=== PATIENT | female | born 1970 | race Caucasian/White ===

== ENCOUNTER 2016-08-10 06:35 | Inpatient (IN) ==
[2016-08-10] MEDS ORDERED: IOPAMIDOL 100 ML BOTTLE IV ONE (06:36)
[2016-08-10] MEDS ORDERED: ONDANSETRON 4 MG/2 ML VIAL IV ONE ×2 (07:06→10:20)
[2016-08-10] MEDS ORDERED: 0.9 % SODIUM CHLORIDE 1,000 ML IV ONE (07:06)
[2016-08-10] MEDS: HYDROmorphone 2 MG/ML SYRINGE IV PRN ×8 (07:24→23:23)
--- NOTE | 2016-08-10 07:28 | Emergency Department Note ---
Abdominal Pain HPI - General Chief Complaint: Abdominal Pain Stated Complaint: epigastric abd pain x4 days Time Seen by Provider: 08/10/16 07:14 Source: patient Mode of arrival: ambulatory Limitations: no limitations - History of Present Illness HPI Narrative: 45-year-old female with a history of alcoholism drinking 8-10 drinks a day of beer and vodka. Is complaining of some midepigastric pain and has been having some nausea but did not vomit today. Vomited 2 days ago. The was no blood in vomitus. No black. Patient is afebrile take as the pain is sharp in the central midepigastric region. Has been seen for gastritis in the past. Has had elevated liver function tests - Related Data Home Medications Medication Instructions Recorded Confirmed cloNIDine HCL [Catapres] 0.1 mg PO BID 11/15/14 08/10/16 Escitalopram [Lexapro] 20 mg PO DAILY 12/30/14 08/10/16 Previous Rx's Medication Instructions Recorded Ranitidine HCl [Zantac] 150 mg PO BID #60 tab 05/07/15 Sucralfate [Carafate] 1 gm PO ACHS #120 tablet 05/07/15 Allergies Allergy/AdvReac Type Severity Reaction Status Date / Time Penicillins Allergy Rash Verified 05/07/15 15:31 Review of Systems All systems ED: reviewed and negative except as stated. Constitutional: Denies: fever Eyes: Denies: eye pain ENT ED: Denies: ear pain Cardiovascular: Denies: chest pain Respiratory: Denies: cough Gastrointestinal: Reports: abdominal pain, nausea, vomiting. Denies: diarrhea, constipation, hematemesis Genitourinary: Denies: urgency, dysuria, frequency Musculoskeletal: Denies: back pain Integumentary: Denies: rash Neurological: Denies: headache Psychiatric: Denies: anxiety Endocrine: Denies: fatigue Hematological/Lymphatic: Denies: easy bleeding Allergic/Immunologic: Denies: facial swelling Abdominal Pain PMH - Past Medical History Medical history: Reports: hypertension, other Surgical history ED: Reports: other (ovarian cyst) Psychiatric history: Reports: anxiety, depression NITROCELLULOSE MAKER history: Reports: no NITROCELLULOSE MAKER history Family history: Reports: other (Family history of alcoholism and coronary artery disease.) - Social History Smoking status: Never smoker Alcohol use: Reports: Heavy Drug use: Reports: none Physical Exam - General Limitations: no limitations General appearance: alert - Head Head exam: atraumatic, normocephalic - Expanded Head Exam Head exam physicial: Present: laceration - Eye Eye exam: Present: normal appearance, PERRL - ENT ENT exam: normal exam, normal oropharynx - Neck Neck exam: Present: normal inspection, full ROM - Chest Chest inspection: Present: normal inspection, symmetric chest wall rise - Respiratory Respiratory exam: Present: normal lung sounds bilaterally, respiratory distress - Cardiovascular Cardiovascular exam: Present: regular rate, normal rhythm - Abdominal Exam Abdominal exam: Present: soft, distention, tenderness, normal bowel sounds. Absent: guarding, rebound, rigidity Abdominal tenderness: Present: epigastrium - Rectal Exam Rectal exam: Present: normal inspection, normal rectal tone, heme (-) stool - Extremities Exam Extremities exam: Present: normal inspection, full ROM - Back Exam Back exam: Present: normal inspection, full ROM - Neurological Exam Neurological exam: Present: alert, oriented X3, CN II-XII intact - Psychiatric Psychiatric exam: Present: flat affect - Skin Skin exam: Present: warm Course Vital Signs Temperature 97.6 F 08/10/16 06:35 Pulse Rate 78 08/10/16 06:35 Respiratory Rate 18 08/10/16 06:35 Blood Pressure 171/152 08/10/16 06:35 Pulse Oximetry (%) 97 08/10/16 06:35 Temperature 97.6 F 08/10/16 06:35 Pulse Rate 66 08/10/16 08:30 Respiratory Rate 18 08/10/16 06:35 Blood Pressure 138/76 08/10/16 08:30 Pulse Oximetry (%) 95 08/10/16 08:30 Abdominal Pain - MDM Narrative Medical decision making narrative: CT of the abdomen with contrast and oral contrast ordered did lipase is markedly elevated. Patient has pancreatitis. atient has eroded care Dr. Beltran montiel at 0900 hrs. - Lab Data Result diagrams: 08/10/16 07:16 08/10/16 07:16 Lab Results 08/10/16 08/10/16 08/10/16 Range/Units 07:16 07:16 07:16 WBC 11.6 H (4.5-11.0) K/mcL RBC 3.50 L (4.00-5.20) M/mcL Hgb 12.7 (12.0-15.0) g/dL Hct 37.7 (36.0-48.0) % MCV 107.6 H (80.0-100.0) fL MCH 36.3 H (26.0-34.0) pg MCHC 33.7 (31.0-36.0) g/dL RDW 13.4 (11.5-14.5) % Plt Count 221 (140-440) K/mcL MPV 7.6 (7.4-10.4) fL Gran % 79.9 H (38.0-78.0) % Lymph % (Auto) 12.3 L (15.5-49.0) % [place] % (Auto) 5.5 (1.0-12.0) % Eos % (Auto) 2.0 (0.0-7.0) % Baso % (Auto) 0.3 (0.0-2.0) % Gran # 9.3 H (1.8-8.0) K/mcL Lymph # 1.4 L (1.5-4.8) K/mcL [place] # 0.6 (0.1-0.9) K/mcL Eos # 0.2 (0.0-0.7) K/mcL Baso # 0 (0.0-0.3) K/mcL PT (11.9-14.5) sec INR (0.9-1.1) Sodium 131 L (133-145) mmol/L Potassium 3.2 L (3.3-5.1) mmol/L Chloride 92 L (96-108) mmol/L Carbon Dioxide 26 (22-30) mmol/L Anion Gap 13.0 (8-16) BUN 12 (6-20) mg/dl Creatinine 0.8 (0.6-1.1) mg/dl GFR Calculation 90 Glucose 116 H (70-105) mg/dL Calcium 8.3 L (8.6-10.4) mg/dl Total Bilirubin 0.9 (0.0-1.0) mg/dL AST 19 (0-37) U/l ALT 20 (0-40) U/l Alkaline Phosphatase 83 (39-117) U/L Total Protein 6.2 (5.9-8.4) gm/dL Albumin 3.5 (3.2-5.2) gm/dL Globulin 2.7 (2.2-3.7) gm/dL Albumin/Globulin Ratio 1.3 (1.0-2.3) Amylase 361 H (28-100) U/L Lipase 1841 H (7-60) U/L Urine Color Yellow Urine Appearance Hazy Urine pH 7.0 (5.0-9.0) Ur Specific [place] 1.030 (1.000-1.035) Urine Protein 100 A (NEG) mg/dL Urine Glucose (UA) Negative (NEG) mg/dL Urine Ketones 20 A (NEG) mg/dL Urine Occult Blood 0.03 A (<0.03) mg/dL Urine Nitrate Neg (NEG) Urine Bilirubin Neg (NEG) mg/dL Urine Ictotest Neg (NEG) Urine Urobilinogen Neg (NEG) mg/dL Ur Leukocyte Esterase 25 A (NEG) /uL Urine RBC 23 H (0-1) /hpf Urine WBC 5 H (0-4) /hpf Ur Squamous Epith Cells 13 H (0-4) /hpf Urine Bacteria Few A (0) /hpf Urine Mucus Few (0) /hpf Ur Culture Indicated? No Urine Opiates Screen (NONDETECTED) Urine Methadone Screen (NONDETECTED) Ur Barbiturates Screen (NONDETECTED) Ur Phencyclidine Scrn (NONDETECTED) Ur Amphetamines Screen (NONDETECTED) U Benzodiazepines Scrn (NONDETECTED) Urine Cocaine Screen (NONDETECTED) U Marijuana (THC) Screen (NONDETECTED) Ethyl Alcohol (<0.010) gm/dl 08/10/16 08/10/16 08/10/16 Range/Units 07:16 07:16 07:16 WBC (4.5-11.0) K/mcL RBC (4.00-5.20) M/mcL Hgb (12.0-15.0) g/dL Hct (36.0-48.0) % MCV (80.0-100.0) fL MCH (26.0-34.0) pg MCHC (31.0-36.0) g/dL RDW (11.5-14.5) % Plt Count (140-440) K/mcL MPV (7.4-10.4) fL Gran % (38.0-78.0) % Lymph % (Auto) (15.5-49.0) % [place] % (Auto) (1.0-12.0) % Eos % (Auto) (0.0-7.0) % Baso % (Auto) (0.0-2.0) % Gran # (1.8-8.0) K/mcL Lymph # (1.5-4.8) K/mcL [place] # (0.1-0.9) K/mcL Eos # (0.0-0.7) K/mcL Baso # (0.0-0.3) K/mcL PT 12.8 (11.9-14.5) sec INR 0.9 (0.9-1.1) Sodium (133-145) mmol/L Potassium (3.3-5.1) mmol/L Chloride (96-108) mmol/L Carbon Dioxide (22-30) mmol/L Anion Gap (8-16) BUN (6-20) mg/dl Creatinine (0.6-1.1) mg/dl GFR Calculation Glucose (70-105) mg/dL Calcium (8.6-10.4) mg/dl Total Bilirubin (0.0-1.0) mg/dL AST (0-37) U/l ALT (0-40) U/l Alkaline Phosphatase (39-117) U/L Total Protein (5.9-8.4) gm/dL Albumin (3.2-5.2) gm/dL Globulin (2.2-3.7) gm/dL Albumin/Globulin Ratio (1.0-2.3) Amylase (28-100) U/L Lipase (7-60) U/L Urine Color Urine Appearance Urine pH (5.0-9.0) Ur Specific [place] (1.000-1.035) Urine Protein (NEG) mg/dL Urine Glucose (UA) (NEG) mg/dL Urine Ketones (NEG) mg/dL Urine Occult Blood (<0.03) mg/dL Urine Nitrate (NEG) Urine Bilirubin (NEG) mg/dL Urine Ictotest (NEG) Urine Urobilinogen (NEG) mg/dL Ur Leukocyte Esterase (NEG) /uL Urine RBC (0-1) /hpf Urine WBC (0-4) /hpf Ur Squamous Epith Cells (0-4) /hpf Urine Bacteria (0) /hpf Urine Mucus (0) /hpf Ur Culture Indicated? Urine Opiates Screen None detected (NONDETECTED) Urine Methadone Screen None detected (NONDETECTED) Ur Barbiturates Screen None detected (NONDETECTED) Ur Phencyclidine Scrn None detected (NONDETECTED) Ur Amphetamines Screen Suspect positive A (NONDETECTED) U Benzodiazepines Scrn None detected (NONDETECTED) Urine Cocaine Screen None detected (NONDETECTED) U Marijuana (THC) Screen None detected (NONDETECTED) Ethyl Alcohol < 0.010 (<0.010) gm/dl Disposition Condition: Fair Referrals: Kristin Russell ARNP [Primary Care Provider] -
[2016-08-10] MEDS ORDERED: POTASSIUM CHLORIDE 20 MEQ, MAGNESIUM SULFATE 16.24 MEQ, THIAMINE 100 MG, MVI, ADULT NO.... IV SCH (07:30)
[2016-08-10 07:59] LABS: Appearance,Urine HAZY; Bacteria,Urine FEW /hpf (0); Bilirubin,Urine NEG (NEG); Color,Urine YELLOW; Glucose,Urine (UA) NEGATIVE (NEG); Ictotest,Urine NEG (NEG); Leukocyte Esterase,Urine 25 /uL (NEG); Mucus,Urine FEW /hpf (0); Nitrate,Urine NEG (NEG); Protein,Urine 100 mg/dL (NEG); Urine Blood 0.03 mg/dL (<0.03); Urine RBC 23 /hpf (0-1); Urine Squamous Epithelial Cell 13 /hpf (0-4); Urine WBC 5 /hpf (0-4); Urobilinogen,Urine NEG (NEG)
[2016-08-10 08:01] LABS: Basophils # (Auto) 0 K/mcL (0.0-0.3); Basophils % (Auto) 0.3 % (0.0-2.0); Eosinophils # (Auto) 0.2 K/mcL (0.0-0.7); Granulocytes % (Auto) 79.9 % (38.0-78.0); Lymphocytes # (Auto) 1.4 K/mcL (1.5-4.8); Lymphocytes % (Auto) 12.3 % (15.5-49.0); Mean Cell Volume 107.6 fL (80.0-100.0); Mean Corpuscular HGB Conc 33.7 g/dL (31.0-36.0); Mean Corpuscular Hemoglobin 36.3 pg (26.0-34.0); Monocytes # (Auto) 0.6 K/mcL (0.1-0.9); Monocytes % (Auto) 5.5 % (1.0-12.0); Platelet Count 221 K/mcL (140-440); Red Cell Distribution Width 13.4 % (11.5-14.5)
[2016-08-10 08:14] LABS: ALT/SGPT 20 U/l (0-40); Albumin 3.5 gm/dL (3.2-5.2); Albumin/Globulin Ratio 1.3 (1.0-2.3); Alkaline Phosphatase 83 U/L (39-117); Amylase 361 U/L (28-100); Blood Urea Nitrogen 12 mg/dl (6-20)
[2016-08-10 08:21] LABS: Amphetamine Screen,Urine SUSPECT POSITIVE (NONDETECTED); Benzodiazepines Screen,Urine NONE DETECTED (NONDETECTED); Cocaine Screen,Urine NONE DETECTED (NONDETECTED); Opiate Screen,Urine NONE DETECTED (NONDETECTED)
[2016-08-10 08:22] LABS: Lipase 1841 U/L (7-60)
--- NOTE | 2016-08-10 10:26 | Emergency Department Note ---
Abdominal Pain HPI - General Chief Complaint: Abdominal Pain Stated Complaint: epigastric abd pain x4 days Time Seen by Provider: 08/10/16 07:14 Source: patient Mode of arrival: ambulatory Limitations: no limitations - Related Data Home Medications Medication Instructions Recorded Confirmed cloNIDine HCL [Catapres] 0.1 mg PO BID 11/15/14 08/10/16 Escitalopram [Lexapro] 20 mg PO DAILY 12/30/14 08/10/16 Previous Rx's Medication Instructions Recorded Ranitidine HCl [Zantac] 150 mg PO BID #60 tab 05/07/15 Sucralfate [Carafate] 1 gm PO ACHS #120 tablet 05/07/15 Allergies Allergy/AdvReac Type Severity Reaction Status Date / Time Penicillins Allergy Rash Verified 05/07/15 15:31 Review of Systems Constitutional: Denies: fever Eyes: Denies: eye pain ENT ED: Denies: ear pain Cardiovascular: Denies: chest pain Respiratory: Denies: cough Gastrointestinal: Reports: abdominal pain, nausea, vomiting. 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 BUSINESS INTELLIGENCE ENGINEER history Family history: Reports: other (Family history of alcoholism and coronary artery disease.) - Social History Alcohol use: Reports: Heavy Drug use: Reports: none Physical Exam - General Limitations: no limitations General appearance: alert Course Vital Signs Temperature 97.6 F 08/10/16 06:35 Pulse Rate 78 08/10/16 06:35 Respiratory Rate 18 08/10/16 06:35 Blood Pressure 171/152 08/10/16 06:35 Pulse Oximetry (%) 97 08/10/16 06:35 Temperature 97.6 F 08/10/16 06:35 Pulse Rate 65 08/10/16 09:30 Respiratory Rate 18 08/10/16 06:35 Blood Pressure 163/94 08/10/16 09:30 Pulse Oximetry (%) 97 08/10/16 09:30 Abdominal Pain - Lab Data Lab results reviewed: Yes I reviewed the patient's lab results. Result diagrams: 08/10/16 07:16 08/10/16 07:16 Lab Results 08/10/16 08/10/16 08/10/16 Range/Units 07:16 07:16 07:16 WBC 11.6 H (4.5-11.0) K/mcL RBC 3.50 L (4.00-5.20) M/mcL Hgb 12.7 (12.0-15.0) g/dL Hct 37.7 (36.0-48.0) % MCV 107.6 H (80.0-100.0) fL MCH 36.3 H (26.0-34.0) pg MCHC 33.7 (31.0-36.0) g/dL RDW 13.4 (11.5-14.5) % Plt Count 221 (140-440) K/mcL MPV 7.6 (7.4-10.4) fL Gran % 79.9 H (38.0-78.0) % Lymph % (Auto) 12.3 L (15.5-49.0) % [place] % (Auto) 5.5 (1.0-12.0) % Eos % (Auto) 2.0 (0.0-7.0) % Baso % (Auto) 0.3 (0.0-2.0) % Gran # 9.3 H (1.8-8.0) K/mcL Lymph # 1.4 L (1.5-4.8) K/mcL [place] # 0.6 (0.1-0.9) K/mcL Eos # 0.2 (0.0-0.7) K/mcL Baso # 0 (0.0-0.3) K/mcL PT (11.9-14.5) sec INR (0.9-1.1) Sodium 131 L (133-145) mmol/L Potassium 3.2 L (3.3-5.1) mmol/L Chloride 92 L (96-108) mmol/L Carbon Dioxide 26 (22-30) mmol/L Anion Gap 13.0 (8-16) BUN 12 (6-20) mg/dl Creatinine 0.8 (0.6-1.1) mg/dl GFR Calculation 90 Glucose 116 H (70-105) mg/dL Calcium 8.3 L (8.6-10.4) mg/dl Total Bilirubin 0.9 (0.0-1.0) mg/dL AST 19 (0-37) U/l ALT 20 (0-40) U/l Alkaline Phosphatase 83 (39-117) U/L Total Protein 6.2 (5.9-8.4) gm/dL Albumin 3.5 (3.2-5.2) gm/dL Globulin 2.7 (2.2-3.7) gm/dL Albumin/Globulin Ratio 1.3 (1.0-2.3) Amylase 361 H (28-100) U/L Lipase 1841 H (7-60) U/L Urine Color Yellow Urine Appearance Hazy Urine pH 7.0 (5.0-9.0) Ur Specific [place] 1.030 (1.000-1.035) Urine Protein 100 A (NEG) mg/dL Urine Glucose (UA) Negative (NEG) mg/dL Urine Ketones 20 A (NEG) mg/dL Urine Occult Blood 0.03 A (<0.03) mg/dL Urine Nitrate Neg (NEG) Urine Bilirubin Neg (NEG) mg/dL Urine Ictotest Neg (NEG) Urine Urobilinogen Neg (NEG) mg/dL Ur Leukocyte Esterase 25 A (NEG) /uL Urine RBC 23 H (0-1) /hpf Urine WBC 5 H (0-4) /hpf Ur Squamous Epith Cells 13 H (0-4) /hpf Urine Bacteria Few A (0) /hpf Urine Mucus Few (0) /hpf Ur Culture Indicated? No Urine Opiates Screen (NONDETECTED) Urine Methadone Screen (NONDETECTED) Ur Barbiturates Screen (NONDETECTED) Ur Phencyclidine Scrn (NONDETECTED) Ur Amphetamines Screen (NONDETECTED) U Benzodiazepines Scrn (NONDETECTED) Urine Cocaine Screen (NONDETECTED) U Marijuana (THC) Screen (NONDETECTED) Ethyl Alcohol (<0.010) gm/dl 08/10/16 08/10/16 08/10/16 Range/Units 07:16 07:16 07:16 WBC (4.5-11.0) K/mcL RBC (4.00-5.20) M/mcL Hgb (12.0-15.0) g/dL Hct (36.0-48.0) % MCV (80.0-100.0) fL MCH (26.0-34.0) pg MCHC (31.0-36.0) g/dL RDW (11.5-14.5) % Plt Count (140-440) K/mcL MPV (7.4-10.4) fL Gran % (38.0-78.0) % Lymph % (Auto) (15.5-49.0) % [place] % (Auto) (1.0-12.0) % Eos % (Auto) (0.0-7.0) % Baso % (Auto) (0.0-2.0) % Gran # (1.8-8.0) K/mcL Lymph # (1.5-4.8) K/mcL [place] # (0.1-0.9) K/mcL Eos # (0.0-0.7) K/mcL Baso # (0.0-0.3) K/mcL PT 12.8 (11.9-14.5) sec INR 0.9 (0.9-1.1) Sodium (133-145) mmol/L Potassium (3.3-5.1) mmol/L Chloride (96-108) mmol/L Carbon Dioxide (22-30) mmol/L Anion Gap (8-16) BUN (6-20) mg/dl Creatinine (0.6-1.1) mg/dl GFR Calculation Glucose (70-105) mg/dL Calcium (8.6-10.4) mg/dl Total Bilirubin (0.0-1.0) mg/dL AST (0-37) U/l ALT (0-40) U/l Alkaline Phosphatase (39-117) U/L Total Protein (5.9-8.4) gm/dL Albumin (3.2-5.2) gm/dL Globulin (2.2-3.7) gm/dL Albumin/Globulin Ratio (1.0-2.3) Amylase (28-100) U/L Lipase (7-60) U/L Urine Color Urine Appearance Urine pH (5.0-9.0) Ur Specific [place] (1.000-1.035) Urine Protein (NEG) mg/dL Urine Glucose (UA) (NEG) mg/dL Urine Ketones (NEG) mg/dL Urine Occult Blood (<0.03) mg/dL Urine Nitrate (NEG) Urine Bilirubin (NEG) mg/dL Urine Ictotest (NEG) Urine Urobilinogen (NEG) mg/dL Ur Leukocyte Esterase (NEG) /uL Urine RBC (0-1) /hpf Urine WBC (0-4) /hpf Ur Squamous Epith Cells (0-4) /hpf Urine Bacteria (0) /hpf Urine Mucus (0) /hpf Ur Culture Indicated? Urine Opiates Screen None detected (NONDETECTED) Urine Methadone Screen None detected (NONDETECTED) Ur Barbiturates Screen None detected (NONDETECTED) Ur Phencyclidine Scrn None detected (NONDETECTED) Ur Amphetamines Screen Suspect positive A (NONDETECTED) U Benzodiazepines Scrn None detected (NONDETECTED) Urine Cocaine Screen None detected (NONDETECTED) U Marijuana (THC) Screen None detected (NONDETECTED) Ethyl Alcohol < 0.010 (<0.010) gm/dl - Radiology Data Radiology results reviewed: Yes I reviewed the patient's radiology results. (cT scan shows inflammation of the pancreas but no complications) Disposition Clinical Impression: Pancreatitis Disposition: Xfer As Inpt ([facility]) Condition: Good Referrals: Kristin Russell ARNP [Primary Care Provider] - Time of Disposition: 10:26
[2016-08-10] MEDS ORDERED: 0.9 % SODIUM CHLORIDE 1,000 ML IV SCH (10:45)
--- NOTE | 2016-08-10 11:23 | Internal Med History&Physical ---
Medical - H&P: HPI Patient information: Note initiated : 08/10/16 at 11:16 am Service Date, if different from initiated Date: [] Patient: Juli Ortiz a 45 y/o F admitted on for epigastric abd pain x4 days. Chief Complaint: [] History of present illness: Ms. Ortiz is a 45 year old female with h/o chr etoh abuse, with multiple relapse and remission, presents to the Er with abdominal pain x 3 days. pain started Thursday, waxing in waning in nature with severe exacerbations, The patients abdominal pain can last a few hours then gets better but always there, epigastric in location, moves to back aand mid abdomen. alcohol makes it worse, pain meds help. Pain associated with nausea and vomiting. She also reports some increased frequency of urination. no fever or chills She notes that she uses THC and etoh, denies amphetamine use, I did ask her regarding her urine tox being positive for amphetamine, but she still denied it use. Notes may have been laced with THC, her THC screen was neg, etoh was < 0.1 The patient has h/o going through withdrawals, h/o one seizure when severly intoxicated as per her. Review of systems: CONSTITUTIONAL: No weight loss, fever, chills, weakness or fatigue. HEENT: Eyes: No visual loss, blurred vision, double vision or yellow sclerae. Ears, Nose, Throat: No hearing loss, sneezing, congestion, runny nose or sore throat. SKIN: No rash or itching. CARDIOVASCULAR: No chest pain, chest pressure or chest discomfort. No palpitations or edema. RESPIRATORY: No shortness of breath, cough or sputum. GASTROINTESTINAL: Present nausea and vomiting , no diarrhea or constipation. Present abdominal pain GENITOURINARY: Denies Burning on urination. Blood in urine, or foul smelling urine, buty present increased frequency of urination. NEUROLOGICAL: present headache, No dizziness or syncope, paralysis, tremors, numbness or tingling in the extremities. No change in bowel or bladder control. MUSCULOSKELETAL: No muscle, back pain, joint pain or stiffness. HEMATOLOGIC: No bleeding or bruising. No enlarged nodes PSYCHIATRIC: present depression and anxiety. ENDOCRINOLOGIC: No reports of sweating, cold or heat intolerance. No polyuria or polydipsia. ALLERGIES: No hives, eczema or rhinitis. Skin: No rash, no jaundice, cyanosis or pallor. Medical - H&P: [facility] Medical history: Medical History Alcoholism (Acute) Gastritis (Acute) Abdominal pain (Acute) Alcohol abuse (Acute) Alcoholic intoxication (Acute) Gastritis (Acute) Pancreatitis (Acute) Pancreatitis, acute (Chronic) Hypertension, essential (Chronic) Pancreas (digestive gland) works poorly (Acute) Abdominal pain (Acute) Alcohol abuse (Chronic) Acute alcoholic pancreatitis (Resolved) Electrolyte abnormality (Resolved) Anxiety and depression (Chronic) Elevated liver enzymes (Resolved) Surgical history: Past Surgical History History of left oophorectomy (Chronic) Family history: reviewed and not pertinent Medical - H&P: Meds Home Medications Medication Instructions Recorded Confirmed Type cloNIDine HCL [Catapres] 0.1 mg PO BID 11/15/14 08/10/16 History Escitalopram [Lexapro] 20 mg PO DAILY 12/30/14 08/10/16 History Ranitidine HCl [Zantac] 150 mg PO BID #60 tab 05/07/15 08/10/16 Rx Sucralfate [Carafate] 1 gm PO ACHS #120 tablet 05/07/15 08/10/16 Rx Allergies Allergy/AdvReac Type Severity Reaction Status Date / Time Penicillins Allergy Rash Verified 05/07/15 15:31 Medical - H&P: Exam - Constitutional Vitals: Temp Pulse Resp BP Pulse Ox 97.6 F 68 18 158/95 96 08/10/16 06:35 08/10/16 11:00 08/10/16 06:35 08/10/16 11:00 08/10/16 11:00 Exam: GENERAL: The patient is a well-developed, well-nourished in no apparent distress. Is alert and oriented x3. obese VITAL SIGNS: Reviewed and as noted elsewhere. HEENT: Head is normocephalic and atraumatic. Extraocular muscles are intact. Pupils are equal, round, and reactive to light. Nares appeared normal. Mouth appears any without lesions. Mucous membranes are moist. NECK: Normal to inspection, Supple, No lymphadenopathy or thyromegaly. LUNGS: Air entry equal on both sides, no wheezing, crackles or rhonchi noted. No accessory muscles of respiration HEART: Regular rate and rhythm normal, S1 and S2 heard, no Gallop, S3 or Rub Noted, No Gross murmur heard. ABDOMEN: epigastic moderate tendernes, no rebound, no organomegaly palpable. EXTREMITIES: No cyanosis, clubbing, rash, lesions or edema. NEUROLOGIC: Cranial nerves II through XII are grossly intact. Motor and Sensory System Grossly Intact PSYCHIATRIC: Normal affect, Normal Mood. Appropriate Behavior. SKIN: No ulceration or wounds noted, No jaundice, No rash noted. Medical - H&P: Reslt - Labs CBC & Chem 7: 08/10/16 07:16 08/10/16 07:16 Labs: Short CBC 08/10/16 Range/Units 07:16 WBC 11.6 H (4.5-11.0) K/mcL Hgb 12.7 (12.0-15.0) g/dL Hct 37.7 (36.0-48.0) % Plt Count 221 (140-440) K/mcL BMP 08/10/16 07:16 Sodium 131 L Potassium 3.2 L Chloride 92 L Carbon Dioxide 26 BUN 12 Creatinine 0.8 Glucose 116 H Calcium 8.3 L Liver Function 08/10/16 Range/Units 07:16 Total Bilirubin 0.9 (0.0-1.0) mg/dL AST 19 (0-37) U/l ALT 20 (0-40) U/l Alkaline Phosphatase 83 (39-117) U/L Albumin 3.5 (3.2-5.2) gm/dL Urine 08/10/16 Range/Units 07:16 Urine Color Yellow Urine Appearance Hazy Urine pH 7.0 (5.0-9.0) Ur Specific [place] 1.030 (1.000-1.035) Urine Protein 100 A (NEG) mg/dL Urine Glucose (UA) Negative (NEG) mg/dL - Impressions ER reported CT results as pancreatitis, with no complication, official read pending. Medical - H&P: A/P - Narrative A/P Narrative: Acute alcoholic Pancreatitis: NPO status, IV fluids, IV pain management, monitor for now, prognosis discussed with the patient. Macrocytosis: MCV 107, due to etoh likely workup as outpatient with PCP Alcohol abuse: Pt counselled Alcohol withdrawal: CIWA protocol, IV ativan prn, IV thaimine, mv and folic acid , fall and seizure precautions. HTN: Resume home dose of po clonidine Depression/ Anxiety: Continue lexpro Gastritis: Due to etoh, also use of NSAIDs OTC, educated, IV PPI BID for now. DVT hep sq Diet NPO Code FUll. Social History - Tobacco smoking status: Never smoker - Alcohol alcohol intake frequency: 2+ drinks per day counseling given: Yes - Substance use substance use type: marijuana
[2016-08-10] MEDS ORDERED: BISACODYL 10 MG SUPP.RECT PR PRN (11:32)
[2016-08-10] MEDS ORDERED: NALOXONE HCL 0.4 MG/ML VIAL IV PRN (11:32)
[2016-08-10] MEDS ORDERED: cloNIDine HCL 0.1 MG TABLET PO PRN (11:32)
[2016-08-10] MEDS: DEXTROSE 5%-1/2NS W/20MEQ KCL 1,000 ML IV SCH ×2 (13:01→23:28)
[2016-08-10] MEDS: 0.9 % SODIUM CHLORIDE 10 ML SYRINGE IV SCH ×4 (14:00→21:07)
--- NOTE | 2016-08-10 15:28 | Cat Scan Report ---
CLINICAL INFORMATION: Reason for Exam:pancreatitis COMPARISON: None. TECHNIQUE: Following injection of intravenous contrast the patient was scanned during the portal venous phase from the diaphragm through the symphysis pubis. Sagittal and coronal reformats were created.. FINDINGS: The liver is normal in size. There is mild fatty infiltration. Is also a cyst in the medial segment left lobe of the liver. The bile ducts are nondilated. The gallbladder is normal with no stones or thickening of the wall. The spleen is normal in size and homogeneous. There is generalized inflammation in and around the pancreas. The inflammation extends into the root of the mesentery. No abscess or pseudocyst are present. The pancreatic duct is nondilated. There is no evidence of a tumor or calculus within the pancreas. The inflammation also extends into the left anterior pararenal space. Small amount of ascites is present which collects deep in the pelvis. The kidneys are normal with no stone or hydronephrosis. The bowel gas pattern is normal. The uterus is normal. There are couple follicles in the right ovary. The larger measures 2 cm. IMPRESSION: Moderate generalized pancreatitis Dr. Espinal was called with results Interpreted and Authenticated by: Matt Smith 08/10/16
[2016-08-10] MEDS: LORazepam 2 MG/ML VIAL IV PRN ×2 (16:21→22:35)
[2016-08-10] MEDS: cloNIDine HCL 0.1 MG TABLET PO SCH (20:26)
[2016-08-10] MEDS: HEPARIN 5,000 UNIT/ML VIAL SQ SCH (20:26)
[2016-08-10] MEDS: PANTOPRAZOLE 40 MG VIAL IV SCH (20:26)
[2016-08-11] MEDS: HYDROmorphone 2 MG/ML SYRINGE IV PRN ×6 (03:53→21:37)
[2016-08-11 05:10] LABS: Basophils # (Auto) 0 K/mcL (0.0-0.3); Basophils % (Auto) 0.3 % (0.0-2.0); Eosinophils # (Auto) 0.4 K/mcL (0.0-0.7); Eosinophils % (Auto) 4.6 % (0.0-7.0); Granulocytes % (Auto) 74.6 % (38.0-78.0); Lymphocytes # (Auto) 1.3 K/mcL (1.5-4.8); Lymphocytes % (Auto) 15.5 % (15.5-49.0); Mean Cell Volume 108.1 fL (80.0-100.0); Mean Corpuscular HGB Conc 33.9 g/dL (31.0-36.0); Mean Corpuscular Hemoglobin 36.6 pg (26.0-34.0); Monocytes # (Auto) 0.4 K/mcL (0.1-0.9); Platelet Count 197 K/mcL (140-440); Red Cell Distribution Width 13.4 % (11.5-14.5)
[2016-08-11] MEDS: 0.9 % SODIUM CHLORIDE 10 ML SYRINGE IV SCH ×5 (05:21→21:22)
[2016-08-11 05:26] LABS: ALT/SGPT 15 U/l (0-40); Albumin 3.3 gm/dL (3.2-5.2); Albumin/Globulin Ratio 1.3 (1.0-2.3); Alkaline Phosphatase 73 U/L (39-117); Amylase 193 U/L (28-100); Bilirubin,Direct < 0.2 mg/dL (0.0-0.3); Blood Urea Nitrogen 4 mg/dl (6-20); Gamma Glutamyl Transpeptidase 49 U/L (5-36); Magnesium 2.3 mg/dL (1.6-2.5); Uric Acid 5.1 mg/dL (2.5-8.0)
[2016-08-11 05:37] LABS: Lipase 828 U/L (7-60)
[2016-08-11] MEDS: ONDANSETRON 4 MG/2 ML VIAL IV PRN (06:47)
[2016-08-11] MEDS: THIAMINE 100 MG in 0.9 % SODIUM CHLORIDE 50 ML IV SCH (09:11)
[2016-08-11] MEDS: HEPARIN 5,000 UNIT/ML VIAL SQ SCH ×2 (09:12→21:22)
[2016-08-11] MEDS: FOLIC ACID 1 MG TABLET PO SCH (09:12)
[2016-08-11] MEDS: PANTOPRAZOLE 40 MG VIAL IV SCH ×2 (09:12→21:22)
[2016-08-11] MEDS: MULTIVIT,THER IRON,CA,FA & MIN 1 TABLET PO SCH (09:12)
[2016-08-11] MEDS: cloNIDine HCL 0.1 MG TABLET PO SCH ×2 (09:12→21:21)
[2016-08-11] MEDS: ESCITALOPRAM 20 MG TABLET PO SCH (09:13)
[2016-08-11] MEDS: DEXTROSE 5%-1/2NS W/20MEQ KCL 1,000 ML IV SCH ×2 (12:16→12:17)
[2016-08-11] MEDS: LORazepam 2 MG/ML VIAL IV PRN ×2 (12:17→23:10)
--- NOTE | 2016-08-11 13:10 | Internal Med Progress Note ---
Medical - PN: Subj Patient information: Note initiated : 08/11/16 at 1:08 pm Service Date, if different from initiated Date: [] Patient: Juli Ortiz a 45 y/o F admitted on 08/10/16 for epigastric abd pain x4 days. Chief Complaint: [] Interval history: Ms. Ortiz is a 45 year old female with h/o chr etoh abuse, with multiple relapse and remission, presents to the Er with abdominal pain x 3 days. pain started Thursday, waxing in waning in nature with severe exacerbations, The patients abdominal pain can last a few hours then gets better but always there, epigastric in location, moves to back aand mid abdomen. alcohol makes it worse, pain meds help. Pain associated with nausea and vomiting. She also reports some increased frequency of urination. no fever or chills She notes that she uses THC and etoh, denies amphetamine use, I did ask her regarding her urine tox being positive for amphetamine, but she still denied it use. Notes may have been laced with THC, her THC screen was neg, etoh was < 0.1 The patient has h/o going through withdrawals, h/o one seizure when severly intoxicated as per her. \ 08/11 PT seen examined, this AM doing much better, labs reviewed with her which are improving, pts pain is much better controlled and her tenderness is not as much. The patient feels she can tolerate some po, and will start with liquid diet today, if she is able to tolerate same will advance diet. She remains on CIWA. electrolyte abnormalities improved. Pertinent ROS: present some headache, No dizziness Denies chest pain, palpitations Denies cough or shortness of breath Improving abdominal pain, nausea or No vomiting. - Constitutional Vitals: Vital Signs Temp Pulse Resp BP Pulse Ox 98.0 F 68 18 134/90 96 08/11/16 11:32 08/11/16 11:32 08/11/16 11:32 08/11/16 11:32 08/11/16 11:32 Period Temp Pulse Resp BP Sys/Carpenter Pulse Ox Last 24 Hr 97.0 F-98.5 F 65-73 12-18 134-149/84-91 91-97 Intake and Output 08/10/16 08/11/16 08/11/16 21:59 05:59 13:59 Intake Total 1000 / 1000 878 / 878 1300 / 1300 Output Total 950 / 950 950 / 950 600 / 600 Balance 50 / 50 -72 / -72 700 / 700 Weight 225 lb Intake & Output: Intake & Output 08/10/16 08/11/16 08/11/16 21:59 05:59 13:59 Intake Total 1000 / 1000 878 / 878 1300 / 1300 Output Total 950 / 950 950 / 950 600 / 600 Balance 50 / 50 -72 / -72 700 / 700 Weight 225 lb Intake: IV 878 / 878 1000 / 1000 Dextrose 5%-1/2Ns W/20Meq 878 / 878 1000 / 1000 KCl 1,000 ml @ 84 mls/hr IV .[id number] [facility] Rx#: [id number] Oral 300 / 300 IV - Manual Only 1000 / 1000 Output: Void Amount 950 / 950 950 / 950 600 / 600 Other: # Voids 1 Exam: Constitutional; Afebrile, cooperative, alert, not in distress. Eyes- No icterus, , No periorbital swelling Ears- Ext ear normal, hearing normal to conversation. Neck- Midline trachea, supple Respiratory system: Air Entry equal on both sides, No crackles or wheezing, no rhonchi. CVS- Rate rhythm regular, S1,S2 heard, no gallop, no rub. Abdomen- Soft mildly tender in epigastric region, no organomegaly, PAEDIATRIC SURGEON- AOOx3, moving all extremities, no gross focal deficit noted. Medical - PN: Obj Da - Labs CBC & Chem 7: 08/11/16 03:43 08/11/16 03:43 Labs: Abnormal Lab Results 08/11/16 08/11/16 03:43 03:43 RBC 3.10 L Hgb 11.4 L Hct 33.6 L MCV 108.1 H MCH 36.6 H Lymph # 1.3 L BUN 4 L Glucose 113 H Calcium 7.9 L Phosphorus 2.4 L GGT 49 H Total Protein 5.8 L Triglycerides 215 H Amylase 193 H Lipase 828 H Meds: Medications Bisacodyl (Dulcolax) 10 mg OR Q2-3DAYS PRN PRN Reason: Constipation Clonidine HCl (Catapres) 0.1 mg PO Q4HP PRN PRN Reason: Alcohol Withdrawal Clonidine HCl (Catapres) 0.1 mg PO BID [facility] Last Admin: 08/11/16 09:12 Dose: 0.1 mg Escitalopram Oxalate (Lexapro) 20 mg PO DAILY [facility] Last Admin: 08/11/16 09:13 Dose: 20 mg Folic Acid (Folic Acid) 1 mg PO DAILY [facility] Last Admin: 08/11/16 09:12 Dose: 1 mg Heparin Sodium (Porcine) (Heparin) 5,000 unit SQ Q12 [facility] Last Admin: 08/11/16 09:12 Dose: 5,000 unit Hydromorphone HCl (Dilaudid) 1 mg IV Q2HP PRN PRN Reason: Pain Last Admin: 08/11/16 09:35 Dose: 1 mg Potassium Chloride/Dextrose/Sod Cl (Dextrose 5%-1/2ns W/20meq Kcl) 1,000 mls @ 84 mls/hr IV .[id number] [facility] Last Admin: 08/11/16 12:17 Dose: 84 mls/hr Thiamine HCl 100 mg/ Sodium (Chloride) 51 mls @ 50 mls/hr IV DAILY [facility] Last Admin: 08/11/16 09:11 Dose: 50 mls/hr Iron Carb/Multivit/[place]/Folic Acid (Multivitamin W/Minerals) 1 tab PO DAILY [facility] Last Admin: 08/11/16 09:12 Dose: 1 tab Lorazepam (Ativan) 1 mg IV Q4HP PRN; Protocol PRN Reason: Alcohol Withdrawal Last Admin: 08/11/16 12:17 Dose: 1 mg Magnesium Hydroxide (Milk Of Magnesia) 30 ml PO DAILYP PRN PRN Reason: Constipation Naloxone HCl (Narcan) 0.1 mg IV Q2MIN PRN PRN Reason: Opiate Reversal Ondansetron HCl (Zofran) 4 mg IV Q6HP PRN PRN Reason: Nausea And Vomiting Last Admin: 08/11/16 06:47 Dose: 4 mg Pantoprazole Sodium (Protonix) 40 mg IV BID [facility] Last Admin: 08/11/16 09:12 Dose: 40 mg Sodium Chloride (Saline Flush) 10 ml IV Q8 [facility] Last Admin: 08/11/16 05:21 Dose: Not Given Sodium Chloride (Saline Flush) 10 ml IV Q8 [facility] Last Admin: 08/11/16 05:21 Dose: Not Given Medical - PN: A/P - Time Spent With Patient Total time spent is greater than 50% in coordination of care (as documented) at patient's floor/unit and/or counseling patient: - Narrative A/P Narrative: Acute alcoholic Pancreatitis: NPO status, IV fluids, IV pain management, monitor for now, advance diet today to liquid diet. Hyponatremia resolved. Macrocytosis: MCV 107, due to etoh likely workup as outpatient with PCP Alcohol abuse: Pt counselled Alcohol withdrawal: CIWA protocol, IV ativan prn, IV thaimine, mv and folic acid , fall and seizure precautions. Continue same, in mild withdrawal, HTN: Resumed home dose of po clonidine BP ok Depression/ Anxiety: Continue lexpro, also on prn ativan Gastritis: Due to etoh, also use of NSAIDs OTC, educated, IV PPI BID for now. DVT hep sq Diet liquid diet. Code FUll. Medical - PN: Qual - VTE Deep Vein Thrombosis/Pulmonary Embolism Present on Admission: No
[2016-08-11] MEDS: MAGNESIUM HYDROXIDE 30 ML ORAL.SUSP PO PRN (23:10)
[2016-08-12] MEDS: DEXTROSE 5%-1/2NS W/20MEQ KCL 1,000 ML IV SCH ×3 (00:12→14:57)
[2016-08-12] MEDS: HYDROmorphone 2 MG/ML SYRINGE IV PRN ×9 (01:22→22:10)
[2016-08-12] MEDS: 0.9 % SODIUM CHLORIDE 10 ML SYRINGE IV SCH ×3 (04:09→20:13)
[2016-08-12 06:11] LABS: Basophils # (Auto) 0 K/mcL (0.0-0.3); Basophils % (Auto) 0.4 % (0.0-2.0); Eosinophils # (Auto) 0.4 K/mcL (0.0-0.7); Eosinophils % (Auto) 4.4 % (0.0-7.0); Granulocytes % (Auto) 73.9 % (38.0-78.0); Lymphocytes # (Auto) 1.6 K/mcL (1.5-4.8); Lymphocytes % (Auto) 16.5 % (15.5-49.0); Mean Cell Volume 108.7 fL (80.0-100.0); Mean Corpuscular HGB Conc 33.8 g/dL (31.0-36.0); Mean Corpuscular Hemoglobin 36.8 pg (26.0-34.0); Monocytes # (Auto) 0.4 K/mcL (0.1-0.9); Monocytes % (Auto) 4.8 % (1.0-12.0); Platelet Count 239 K/mcL (140-440); RBC 3.22 M/mcL (4.00-5.20); Red Cell Distribution Width 13.1 % (11.5-14.5)
[2016-08-12 06:30] LABS: ALT/SGPT 15 U/l (0-40); Albumin 3.9 gm/dL (3.2-5.2); Albumin/Globulin Ratio 1.4 (1.0-2.3); Alkaline Phosphatase 80 U/L (39-117); Amylase 103 U/L (28-100); Bilirubin,Direct < 0.2 mg/dL (0.0-0.3); Blood Urea Nitrogen 3 mg/dl (6-20); Gamma Glutamyl Transpeptidase 58 U/L (5-36); Lipase 435 U/L (7-60); Magnesium 2.2 mg/dL (1.6-2.5); Uric Acid 5.1 mg/dL (2.5-8.0)
[2016-08-12] MEDS: ESCITALOPRAM 20 MG TABLET PO SCH (08:45)
[2016-08-12] MEDS: MULTIVIT,THER IRON,CA,FA & MIN 1 TABLET PO SCH (08:45)
[2016-08-12] MEDS: FOLIC ACID 1 MG TABLET PO SCH (08:45)
[2016-08-12] MEDS: HEPARIN 5,000 UNIT/ML VIAL SQ SCH ×2 (08:45→20:13)
[2016-08-12] MEDS: PANTOPRAZOLE 40 MG VIAL IV SCH ×2 (08:45→20:13)
[2016-08-12] MEDS: cloNIDine HCL 0.1 MG TABLET PO SCH ×2 (08:45→20:13)
[2016-08-12] MEDS: THIAMINE 100 MG in 0.9 % SODIUM CHLORIDE 50 ML IV SCH (08:46)
--- NOTE | 2016-08-12 10:42 | Internal Med Progress Note ---
Medical - PN: Subj Patient information: Note initiated : 08/12/16 at 10:37 am Service Date, if different from initiated Date: [] Patient: Juli Ortiz a 45 y/o F admitted on 08/10/16 for epigastric abd pain x4 days. Chief Complaint: [] Interval history: Ms. Ortiz is a 45 year old female with h/o chr etoh abuse, with multiple relapse and remission, presents to the Er with abdominal pain x 3 days. pain started Thursday, waxing in waning in nature with severe exacerbations, The patients abdominal pain can last a few hours then gets better but always there, epigastric in location, moves to back aand mid abdomen. alcohol makes it worse, pain meds help. Pain associated with nausea and vomiting. She also reports some increased frequency of urination. no fever or chills She notes that she uses THC and etoh, denies amphetamine use, I did ask her regarding her urine tox being positive for amphetamine, but she still denied it use. Notes may have been laced with THC, her THC screen was neg, etoh was < 0.1 The patient has h/o going through withdrawals, h/o one seizure when severly intoxicated as per her. \ 08/11 PT seen examined, this AM doing much better, labs reviewed with her which are improving, pts pain is much better controlled and her tenderness is not as much. The patient feels she can tolerate some po, and will start with liquid diet today, if she is able to tolerate same will advance diet. She remains on CIWA. electrolyte abnormalities improved. 08/12 Pt seen examined, no acute overnight events, still has pain, but ok, uses pain meds every 2 hrs, able to tolerate liquid diet well, no nausea or vomiting , pain did not exarcebate after eating, labs reviewed, amylase and lipase are trending down. Discussed with the patient plan of care, to advance diet to full liquid today and solids tomorrow if able anticipate d/c to home tomorrow if able to tolerate full diet. Pertinent ROS: Denies headache, dizziness Denies chest pain, palpitations Denies cough or shortness of breath Present abdominal pain, No nausea or vomiting. - Constitutional Vitals: Vital Signs Temp Pulse Resp BP Pulse Ox 96.8 F L 69 20 157/97 97 08/12/16 07:38 08/12/16 07:38 08/12/16 07:38 08/12/16 07:38 08/12/16 07:38 Period Temp Pulse Resp BP Sys/Carpenter Pulse Ox Last 24 Hr 96.8 F-98.7 F 67-75 12-22 134-166/87-99 96-97 Intake and Output 08/11/16 08/12/16 08/12/16 21:59 05:59 13:59 Intake Total 240 / 240 1350 / 1350 Output Total 1850 / 1850 1100 / 1100 500 / 500 Balance -1610 / -1610 250 / 250 -500 / -500 Weight 228 lb 8 oz Intake & Output: Intake & Output 08/11/16 08/12/16 08/12/16 21:59 05:59 13:59 Intake Total 240 / 240 1350 / 1350 Output Total 1850 / 1850 1100 / 1100 500 / 500 Balance -1610 / -1610 250 / 250 -500 / -500 Weight 228 lb 8 oz Intake: IV 1000 / 1000 Dextrose 5%-1/2Ns W/20Meq 1000 / 1000 KCl 1,000 ml @ 84 mls/hr IV .[id number] [facility] Rx#: [id number] Oral 240 / 240 350 / 350 Output: Void Amount 1850 / 1850 1100 / 1100 500 / 500 Other: Meal Beef broth [id number] Percent of Meal Consumed 100% Feeding Ability Independent Independent # Voids 1 Exam: Constitutional; Afebrile, cooperative, alert, not in distress. Eyes- No icterus, , No periorbital swelling Ears- Ext ear normal, hearing normal to conversation. Neck- Midline trachea, supple Respiratory system: Air Entry equal on both sides, No crackles or wheezing, no rhonchi. CVS- Rate rhythm regular, S1,S2 heard, no gallop, no rub. Abdomen- Mildly tender epigastric region ,no organomegaly, no tenderness, no guarding or rigidity, CHART CALCULATOR- AOOx3, moving all extremities, no gross focal deficit noted. Medical - PN: Obj Da - Labs CBC & Chem 7: 08/12/16 04:45 08/12/16 04:45 Labs: Abnormal Lab Results 08/12/16 08/12/16 08/11/16 04:45 04:45 03:43 RBC 3.22 L Hgb 11.9 L Hct 35.0 L MCV 108.7 H MCH 36.8 H Lymph # BUN 3 L 4 L Glucose 129 H 113 H Calcium 7.9 L Phosphorus 2.4 L GGT 58 H 49 H Total Protein 5.8 L Triglycerides 226 H 215 H Amylase 103 H 193 H Lipase 435 H 828 H 08/11/16 03:43 RBC 3.10 L Hgb 11.4 L Hct 33.6 L MCV 108.1 H MCH 36.6 H Lymph # 1.3 L BUN Glucose Calcium Phosphorus GGT Total Protein Triglycerides Amylase Lipase Meds: Medications Bisacodyl (Dulcolax) 10 mg UT Q2-3DAYS PRN PRN Reason: Constipation Clonidine HCl (Catapres) 0.1 mg PO Q4HP PRN PRN Reason: Alcohol Withdrawal Clonidine HCl (Catapres) 0.1 mg PO BID [facility] Last Admin: 08/12/16 08:45 Dose: 0.1 mg Escitalopram Oxalate (Lexapro) 20 mg PO DAILY [facility] Last Admin: 08/12/16 08:45 Dose: 20 mg Folic Acid (Folic Acid) 1 mg PO DAILY [facility] Last Admin: 08/12/16 08:45 Dose: 1 mg Heparin Sodium (Porcine) (Heparin) 5,000 unit SQ Q12 [facility] Last Admin: 08/12/16 08:45 Dose: 5,000 unit Hydromorphone HCl (Dilaudid) 1 mg IV Q2HP PRN PRN Reason: Pain Last Admin: 08/12/16 10:06 Dose: 1 mg Potassium Chloride/Dextrose/Sod Cl (Dextrose 5%-1/2ns W/20meq Kcl) 1,000 mls @ 84 mls/hr IV .[id number] [facility] Last Admin: 08/12/16 00:12 Dose: 84 mls/hr Thiamine HCl 100 mg/ Sodium (Chloride) 51 mls @ 50 mls/hr IV DAILY [facility] Last Admin: 08/12/16 08:46 Dose: 50 mls/hr Iron Carb/Multivit/[place]/Folic Acid (Multivitamin W/Minerals) 1 tab PO DAILY [facility] Last Admin: 08/12/16 08:45 Dose: 1 tab Lorazepam (Ativan) 1 mg IV Q4HP PRN; Protocol PRN Reason: Alcohol Withdrawal Last Admin: 08/11/16 23:10 Dose: 1 mg Magnesium Hydroxide (Milk Of Magnesia) 30 ml PO DAILYP PRN PRN Reason: Constipation Last Admin: 08/11/16 23:10 Dose: 30 ml Naloxone HCl (Narcan) 0.1 mg IV Q2MIN PRN PRN Reason: Opiate Reversal Ondansetron HCl (Zofran) 4 mg IV Q6HP PRN PRN Reason: Nausea And Vomiting Last Admin: 08/11/16 06:47 Dose: 4 mg Pantoprazole Sodium (Protonix) 40 mg IV BID [facility] Last Admin: 08/12/16 08:45 Dose: 40 mg Sodium Chloride (Saline Flush) 10 ml IV Q8 [facility] Last Admin: 08/12/16 04:09 Dose: Not Given Medical - PN: A/P - Time Spent With Patient Total time spent is greater than 50% in coordination of care (as documented) at patient's floor/unit and/or counseling patient: - Narrative A/P Narrative: Acute alcoholic Pancreatitis: Full liquid diet now, amylase, lipase trending down, Continue IVF, Hyponatremia resolved. Macrocytosis: MCV 107, due to etoh likely workup as outpatient with PCP Alcohol abuse: Pt counselled Alcohol withdrawal: CIWA protocol, IV ativan prn, IV thaimine, mv and folic acid , fall and seizure precautions. Continue same, in mild withdrawal, scores (1-7) HTN: Resumed home dose of po clonidine BP ok Depression/ Anxiety: Continue lexpro, also on prn ativan Gastritis: Due to etoh, also use of NSAIDs OTC, educated, IV PPI BID for now. DVT hep sq Diet full liquid diet. Code FUll. Medical - PN: Qual - VTE Deep Vein Thrombosis/Pulmonary Embolism Present on Admission: No
[2016-08-12] MEDS ORDERED: MAGNESIUM CITRATE 300 ML ORAL.SOL PO ONE (14:23)
[2016-08-12] MEDS: ONDANSETRON 4 MG/2 ML VIAL IV PRN (18:15)
[2016-08-12] MEDS: LORazepam 2 MG/ML VIAL IV PRN (23:31)
[2016-08-12] MEDS: MAGNESIUM HYDROXIDE 30 ML ORAL.SUSP PO PRN (23:42)
[2016-08-13] MEDS: HYDROmorphone 2 MG/ML SYRINGE IV PRN ×5 (00:28→12:36)
[2016-08-13] MEDS: DEXTROSE 5%-1/2NS W/20MEQ KCL 1,000 ML IV SCH ×2 (03:58→10:25)
[2016-08-13] MEDS: 0.9 % SODIUM CHLORIDE 10 ML SYRINGE IV SCH (05:15)
[2016-08-13] MEDS: PANTOPRAZOLE 40 MG VIAL IV SCH (07:33)
[2016-08-13 07:41] LABS: Basophils # (Auto) 0 K/mcL (0.0-0.3); Basophils % (Auto) 0.6 % (0.0-2.0); Eosinophils # (Auto) 0.3 K/mcL (0.0-0.7); Eosinophils % (Auto) 4.7 % (0.0-7.0); Granulocytes % (Auto) 66.4 % (38.0-78.0); Lymphocytes # (Auto) 1.4 K/mcL (1.5-4.8); Lymphocytes % (Auto) 19.9 % (15.5-49.0); Mean Corpuscular HGB Conc 33.7 g/dL (31.0-36.0); Mean Corpuscular Hemoglobin 36.4 pg (26.0-34.0); Monocytes # (Auto) 0.6 K/mcL (0.1-0.9); Monocytes % (Auto) 8.4 % (1.0-12.0); Platelet Count 212 K/mcL (140-440); RBC 3.29 M/mcL (4.00-5.20); Red Cell Distribution Width 13.8 % (11.5-14.5)
[2016-08-13 07:44] LABS: ALT/SGPT 16 U/l (0-40); Albumin 3.7 gm/dL (3.2-5.2); Albumin/Globulin Ratio 1.3 (1.0-2.3); Alkaline Phosphatase 68 U/L (39-117); Amylase 65 U/L (28-100); Bilirubin,Direct < 0.2 mg/dL (0.0-0.3); Blood Urea Nitrogen 2 mg/dl (6-20); Gamma Glutamyl Transpeptidase 60 U/L (5-36); Lipase 214 U/L (7-60); Magnesium 2.3 mg/dL (1.6-2.5); Uric Acid 5.3 mg/dL (2.5-8.0)
[2016-08-13] MEDS: HEPARIN 5,000 UNIT/ML VIAL SQ SCH (08:47)
[2016-08-13] MEDS: FOLIC ACID 1 MG TABLET PO SCH (08:48)
[2016-08-13] MEDS: cloNIDine HCL 0.1 MG TABLET PO SCH (08:48)
[2016-08-13] MEDS: ESCITALOPRAM 20 MG TABLET PO SCH (08:48)
[2016-08-13] MEDS: MULTIVIT,THER IRON,CA,FA & MIN 1 TABLET PO SCH (08:48)
[2016-08-13] MEDS: THIAMINE 100 MG in 0.9 % SODIUM CHLORIDE 50 ML IV SCH (09:30)
--- NOTE | 2016-08-13 11:32 | Discharge Summary ---
Medical - DS: Prov Patient information: Note initiated : 08/13/16 at 11:23 am Service Date, if different from initiated Date: [] Patient: Juli Ortiz 45 y/o F admitted on 08/10/16 for epigastric abd pain x4 days. Chief Complaint: [] Date of admission: 08/10/16 11:20 Discharge date: 08/13/16 Primary care physician: [f_Reg Prim Care Provider] Admitting clinician: Farhad Gandhi Discharging clinician: Farhad Gandhi Medical - DS: Meds - Discharge Medications Prescriptions: Hydrocodone/APAP 7.5/325Mg [[place] 7.5/325Mg] 1 tab PO Q4HP PRN #20 tablet PRN Reason: Pain LORazepam [Ativan] 1 mg PO Q6HP PRN #20 tablet PRN Reason: Alcohol Withdrawal Active and Home Medications: Home Medications cloNIDine HCL [Catapres] 0.1 mg PO BID 11/15/14 [History Confirmed 08/10/16 Last Taken Unknown] Escitalopram [Lexapro] 20 mg PO DAILY 12/30/14 [History Confirmed 08/10/16 Last Taken Unknown] Ranitidine HCl [Zantac] 150 mg PO BID #60 tab 05/07/15 [Rx Confirmed 08/10/16 Last Taken Unknown] Sucralfate [Carafate] 1 gm PO ACHS #120 tablet 05/07/15 [Rx Confirmed 08/10/16 Last Taken Unknown] Medical - DS: Hosp Hospital course: Mr. Ortiz is a 45 year old female who presented to the hospital with abdominal pain. she has h/o etoh use, and in the ER noted to have elevated lipase and amyalse, she was admitted to the hospital with acute pancreatitis. Acute alcoholic pancreatitis. CT neg positive for pancreatitis, no complications reported on initial CT Scan, the patient was managed conservatively with IV pain meds, NPO, IV fluids. She responded to treatment well, her amylase and lipase levels kept trending down, she is able to tolerate full diet well, she still has pain, but I anticipate this to continue to improve with oral meds. Alcohol withdrawal: Managed with CIWA protocol, was in mid withdrawal, pt with iv thiamine, mv, and ativan. Dicussed with her at length need to stop drinking. HTN: on clonidine, no changes made to home regime. Discharge diagnosis: acute pancreatitis - Time Spent with Patient Total time spent providing and/or coordinating discharge services: Less than 30 minutes Medical - DS: Exam - Constitutional Vitals: Vital Signs Temp Pulse Pulse Resp BP Pulse Ox 08/13/16 07:06 97.8 F 20 135/76 96 08/13/16 04:00 97.9 F 67 20 148/85 96 08/13/16 00:00 98.1 F 77 20 178/101 97 08/12/16 19:57 73 181/101 95 08/12/16 18:42 97.6 F 67 20 167/103 97 08/12/16 16:00 96.8 F L 63 156/98 96 08/12/16 12:00 96.7 F L 65 20 150/89 97 Intake and Output 08/12/16 08/13/16 08/13/16 21:59 05:59 13:59 Intake Total 730 / 730 1690 / 1690 480 / 480 Output Total 2049 1300 / 1300 Balance -1320 / -1320 390 / 390 480 / 480 Intake: IV 1000 / 1000 Dextrose 5%-1/2Ns W/20Meq 1000 / 1000 KCl 1,000 ml @ 84 mls/hr IV .[id number] [facility] Rx#: [id number] Oral 730 / 730 690 / 690 480 / 480 Output: Void Amount 2049 1300 / 1300 Other: Meal Popsicle Popsicle Breakfast Percent of Meal Consumed 100% 100% 90 Feeding Ability Independent Independent Independent # Voids 2 2 # Bowel Movements 3 Weight 229 lb Additional comments: Constitutional; Afebrile, cooperative, alert, not in distress. Eyes- No icterus, , No periorbital swelling Ears- Ext ear normal, hearing normal to conversation. Neck- Midline trachea, supple Respiratory system: Air Entry equal on both sides, No crackles or wheezing, no rhonchi. CVS- Rate rhythm regular, S1,S2 heard, no gallop, no rub. Abdomen- Soft nontender abdomen, no organomegaly, no tenderness, no guarding or rigidity, HIGH WIRE ARTIST- AOOx3, moving all extremities, no gross focal deficit noted. Medical - DS: Data Labs on day of discharge: Labs from last 24 hours 08/13/16 08/13/16 05:35 05:35 WBC 6.9 RBC 3.29 L Hgb 11.9 L Hct 35.5 L MCV 108.0 H MCH 36.4 H MCHC 33.7 RDW 13.8 Plt Count 212 MPV 8.0 Gran % 66.4 Lymph % (Auto) 19.9 [place] % (Auto) 8.4 Eos % (Auto) 4.7 Baso % (Auto) 0.6 Gran # 4.6 Lymph # 1.4 L [place] # 0.6 Eos # 0.3 Baso # 0 Sodium 140 Potassium 4.0 Chloride 103 Carbon Dioxide 25 Anion Gap 12.0 BUN 2 L Creatinine 0.7 GFR Calculation 105 Glucose 133 H Uric Acid 5.3 Calcium 8.7 Phosphorus 2.9 Magnesium 2.3 Total Bilirubin 0.2 Direct Bilirubin < 0.2 GGT 60 H AST 20 ALT 16 Alkaline Phosphatase 68 Lactate Dehydrogenase 194 Total Protein 6.5 Albumin 3.7 Globulin 2.8 Albumin/Globulin Ratio 1.3 Triglycerides 180 H Amylase 65 Lipase 214 H Medical - DS: A/P - Patient/Caregiver Discharge Instructions Activity: increase activity as tolerated Diet: Regular Diet Additional Instructions: Do not drink alcohol Do not drive while using pain medications or anxiety medications. Follow up with your pcp in 7 days for follow up Go to ER if worsening abdominal pain, fever or any new concerning symptom. Prescriptions: Hydrocodone/APAP 7.5/325Mg [[place] 7.5/325Mg] 1 tab PO Q4HP PRN #20 tablet PRN Reason: Pain LORazepam [Ativan] 1 mg PO Q6HP PRN #20 tablet PRN Reason: Alcohol Withdrawal - Follow up Plan Follow up with: Kristin Russell ARNP [Primary Care Provider] - Disposition: Home, Self-Care Prognosis: Good Rehab Potential: Good I certify that the patient requires SNF services: No Overall status at discharge: patient is progressing back to baseline Medical - DS: Qual - VTE Deep Vein Thrombosis/Pulmonary Embolism Present on Admission: No
== END 2016-08-13 13:45 | disposition home or self-care (01) | DRG 439 ==
LOC: ED 06:35 → MEDSUR 11:20
PROVIDERS: ADMIT Internal Medicine; ATTEND Internal Medicine